=== PATIENT | female | born 1965 | race Caucasian/White ===

== ENCOUNTER → 2023-08-29 11:23 | Outpatient (REF) | payer OTHER, SELFPAY | LOC: WDC 11:23 | PROVIDERS: ATTENDING PHYSICIAN Obstetrics & Gynecology Gynecology | DX: Z12.31 Encounter for screening mammogram for malignant neoplasm of breast (principal) | CPT/HCPCS: 77063; 77067 ==

== ENCOUNTER → 2024-09-03 11:20 | Outpatient (REF) | payer OTHER, SELFPAY | LOC: WDC 11:20 | PROVIDERS: ATTENDING PHYSICIAN Obstetrics & Gynecology Gynecology | DX: Z12.31 Encounter for screening mammogram for malignant neoplasm of breast (principal) | CPT/HCPCS: 77063; 77067 ==